=== PATIENT | female | born 1980 | race Caucasian/White ===

== ENCOUNTER 2017-06-14 20:56 | Emergency (ER) | payer OTHER ==
[~2017-06-14] VITALS: Ht 180.3 cm; Wt 113.4 kg
[~2017-06-14 20:56] MED LIST: AMITRIPTYLINE 225 MG PO; AMOXICOT500 MG PO; APAP/BUTALBITAL1 TA1 PO; BENTYL10 MG PO; BENTYL20 MG PO; BUSPIRONE HCL15 MG PO; CHANTIX1 M1 PO; CIPRO 500MG TA500 MG PO; DAILY MULTIPLE1 T11 PO; ESCITALOPRAM10 M1 PO; FLAGYL 500MG.500 MG PO; FLAGYL500 M1 PO; GABAPENTIN100 MG PO; GABAPENTIN800 MG PO; ISOMETH/DICHLOR1 CAP PO; LORTAB 5/500 501 TAB PO; MEDROL 4MG. DOSE4 MG PO; MELOXICAM15 MG PO; METOPROLOL100 MG OR; NEXIUM40 MG PO; NICODERM C21 MG/24 H TD; NORTRIPTYLINE PO; ONDANSETRON8 MG PO; PANTOPRAZOLE SO40 M1 PO; PHENERGAN 25MG.25 M1 PO; PROTONIX 40MG T40 MG PO; PROVENTIL0.09 MG/A1 IH; SIMVASTATIN20 MG PO; TESSALON PERLE100 M1 PO; TRAZODONE HCL150 MG PO; VICODIN 5/500 T1 TAB PO; ZOFRAN ODT4 MG PO; ZOLOFT100 MG; ZOMIG PO
--- NOTE | 2017-06-14 21:24 | Emergency Room Report ---
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 N Clinical Suspician of Infection? N Mental Status: 1 - Regular (Normal Baseline) Sepsis Risk:Low Sepsis Risk Have you (or family members/close friends) recently traveled outside the [place]? N If Yes, where/when: Have you had exposure to infectious disease within the past month? N TB? Other? Specify: Source patient, RN notes reviewed, family, old records Exam Limitations no limitations Comment acute rt foot injury with rad rt upper leg tonight with pain with wt bearing Cardiac Chest Pain Chest pain indicative of cardiac No Timing/Duration this evening ALLERGIES Coded Allergies: No Known Allergies (06/09/16) Home Medications Active Scripts Ondansetron (Zofran 4MG Odt) 4 MG PO Q6HP PRN NAUSEA AND VOMITING #6 ODT Prov: 08/04/16 ALBUTEROL (Proventil Hfa Inhaler) 1-2 PUFF IH Q4-6H PRN #1 CAN Ref 5 Prov: 08/30/15 Reported Medications Promethazine Hydrochloride (Phenergan 25MG Tab) 25 MG PO Q4-6H PRN #120 Amitriptyline Hcl (Amitriptyline) 75 MG PO QHS #90 TAB Gabapentin (Gabapentin 800MG) 800 MG PO QID #90 TAB Pantoprazole Sodium 40 MG PO BID #60 Escitalopram Oxalate 10 MG PO DAILY #30 Gabapentin (Gabapentin 100MG) 100 MG PO QID #120 MULTIVITAMIN (Daily Multiple Vitamin) 1 TAB PO DAILY Varenicline (Chantix) 1 MG PO BID #56 History Medical History General CAD? No Angina: Yes [place]: No Hypertension? Yes Hyperlipidemia? Yes CHF? No DVT? No PE? No COPD? Yes Asthma? No Anemia? No GERD? Yes Gastric ulcers? No GI Bleed? No Hernia? No Thyroid Problems? No Hypothyroidism? No CVA? No Seizures? No Diabetes? No Renal Insuffiency? No End Stage Renal Disease? No UTI? Yes Stones? No BPH? No GB Disease: No Nephritic Syndrome? No Asplenia? No Hepatitis? No Sickle Cell Disease? No Arthritis? No Migraines? Yes Cataracts? No Glaucoma? No MRSA? No HIV? No TB? No Anxiety? Yes Depression? Yes Cancer? No More? 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 Respiratory denies cough, denies shortness of breath, denies wheezing Cardiovascular denies chest pain, denies syncope Gastrointestinal denies abdominal pain, denies diarrhea, denies vomiting Genitourinary denies: dysuria, frequency, hesitancy, hematuria. Musculoskeletal see HPI, denies back pain, joint pain, joint swelling, denies neck pain Skin denies rash Psychiatric/Neurological denies seizure Physical Exam Vital Signs Vital Signs Date Time Temp Pulse Resp B/P Pulse O2 O2 Flow FiO2 Ox Delivery Rate 06/14 2100 98.0 78 18 149/99 98 - WBC >12,000 or <4,000 or 10% bands? 2 or more SIRS Criteria Met? B/P:149/99 MAP:115 Creatinine >2.0? UA output<0.5ml/kg/hr for 2 hrs? Platelet count >100,000? Lactate >2.0mmol/1? INR >1.2 or PTT > than 60 sec? Evidence of Organ Dysfunction? Provider documented clinical suspician of infection? N Sepsis Criteria Count: 0 Sepsis Risk: Low Sepsis Risk General Appearance no apparent distress Eye Exam - bilateral eye PERRL, bilateral eye EOMI Ear, Nose, Throat normal ENT inspection Neck supple Respiratory Status No: respiratory distress. 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 No Results/Orders Orders Procedure Date/time Status FOOT-RT-3 VIEWS 06/14 2105 Active XRAY/CT/US XRAY/CT/US XRAY foot XR interpretation by reviewed by me Xray Results no fracture seen Departure Departure Time of Disposition 2118 Disposition DC Home or Self Care(routine) Clinical Impression Primary Impression: Sprain of foot, right Qualifiers: Encounter type: initial encounter Qualified Code: S93.601A - Unspecified sprain of right foot, initial encounter Condition STABLE Referrals NAVEED JONES DPM Patient Instructions DI for Foot Sprain Additional Instructions ice and see pcp or podiatry for follow up Discharge Counseling Counseled pt/family regarding diagnosis, test results, medications/RX, follow up needs ED Critical Care Critical Care No at 2122
--- NOTE | 2017-06-14 21:24 | Emergency Room Report ---
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 N Clinical Suspician of Infection? N Mental Status: 1 - Regular (Normal Baseline) Sepsis Risk:Low Sepsis Risk Have you (or family members/close friends) recently traveled outside the [place]? N If Yes, where/when: Have you had exposure to infectious disease within the past month? N TB? Other? Specify: Source patient, RN notes reviewed, family, old records Exam Limitations no limitations Comment acute rt foot injury with rad rt upper leg tonight with pain with wt bearing Cardiac Chest Pain Chest pain indicative of cardiac No Timing/Duration this evening ALLERGIES Coded Allergies: No Known Allergies (06/09/16) Home Medications Active Scripts Ondansetron (Zofran 4MG Odt) 4 MG PO Q6HP PRN NAUSEA AND VOMITING #6 ODT Prov: 08/04/16 ALBUTEROL (Proventil Hfa Inhaler) 1-2 PUFF IH Q4-6H PRN #1 CAN Ref 5 Prov: 08/30/15 Reported Medications Promethazine Hydrochloride (Phenergan 25MG Tab) 25 MG PO Q4-6H PRN #120 Amitriptyline Hcl (Amitriptyline) 75 MG PO QHS #90 TAB Gabapentin (Gabapentin 800MG) 800 MG PO QID #90 TAB Pantoprazole Sodium 40 MG PO BID #60 Escitalopram Oxalate 10 MG PO DAILY #30 Gabapentin (Gabapentin 100MG) 100 MG PO QID #120 MULTIVITAMIN (Daily Multiple Vitamin) 1 TAB PO DAILY Varenicline (Chantix) 1 MG PO BID #56 History Medical History General CAD? No Angina: Yes [place]: No Hypertension? Yes Hyperlipidemia? Yes CHF? No DVT? No PE? No COPD? Yes Asthma? No Anemia? No GERD? Yes Gastric ulcers? No GI Bleed? No Hernia? No Thyroid Problems? No Hypothyroidism? No CVA? No Seizures? No Diabetes? No Renal Insuffiency? No End Stage Renal Disease? No UTI? Yes Stones? No BPH? No GB Disease: No Nephritic Syndrome? No Asplenia? No Hepatitis? No Sickle Cell Disease? No Arthritis? No Migraines? Yes Cataracts? No Glaucoma? No MRSA? No HIV? No TB? No Anxiety? Yes Depression? Yes Cancer? No More? 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 Respiratory denies cough, denies shortness of breath, denies wheezing Cardiovascular denies chest pain, denies syncope Gastrointestinal denies abdominal pain, denies diarrhea, denies vomiting Genitourinary denies: dysuria, frequency, hesitancy, hematuria. Musculoskeletal see HPI, denies back pain, joint pain, joint swelling, denies neck pain Skin denies rash Psychiatric/Neurological denies seizure Physical Exam Vital Signs Vital Signs Date Time Temp Pulse Resp B/P Pulse O2 O2 Flow FiO2 Ox Delivery Rate 06/14 2100 98.0 78 18 149/99 98 - WBC >12,000 or <4,000 or 10% bands? 2 or more SIRS Criteria Met? B/P:149/99 MAP:115 Creatinine >2.0? UA output<0.5ml/kg/hr for 2 hrs? Platelet count >100,000? Lactate >2.0mmol/1? INR >1.2 or PTT > than 60 sec? Evidence of Organ Dysfunction? Provider documented clinical suspician of infection? N Sepsis Criteria Count: 0 Sepsis Risk: Low Sepsis Risk General Appearance no apparent distress Eye Exam - bilateral eye PERRL, bilateral eye EOMI Ear, Nose, Throat normal ENT inspection Neck supple Respiratory Status No: respiratory distress. 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 No Results/Orders Orders Procedure Date/time Status FOOT-RT-3 VIEWS 06/14 2105 Active XRAY/CT/US XRAY/CT/US XRAY foot XR interpretation by reviewed by me Xray Results no fracture seen Departure Departure Time of Disposition 2118 Disposition DC Home or Self Care(routine) Clinical Impression Primary Impression: Sprain of foot, right Qualifiers: Encounter type: initial encounter Qualified Code: S93.601A - Unspecified sprain of right foot, initial encounter Condition STABLE Referrals NAVEED JONES DPM Patient Instructions DI for Foot Sprain Additional Instructions ice and see pcp or podiatry for follow up Discharge Counseling Counseled pt/family regarding diagnosis, test results, medications/RX, follow up needs ED Critical Care Critical Care No at 2121
[2017-06-14 21:54] VITALS: BP 149/99
--- NOTE | 2017-06-15 08:27 | RADIOLOGY REPORT PS360 ---
FOOT-RT-3 VIEWS HISTORY: Right foot pain foot pain ORDERING PHYSICIAN: Jules Reilly MD PATIENT AGE: 37 years COMPARISON: None FINDINGS: No fracture or dislocation. No lytic or blastic change. There is normal mineralization.. The joint spaces are well-preserved. No significant degenerative/arthritic changes. No erosive changes evident. There is a small calcaneal spur nonspecific IMPRESSION: No acute finding, small calcaneal spur
--- OUTSIDE RECORDS SUMMARY | 2017-06-19 23:12 | External Medical Summary Rpt | CCD ---
Author Author [employer] Organization [employer] Address Unknown Phone Unavailable Purpose Continuity of Care Document - through 2016
--- OUTSIDE RECORDS SUMMARY | 2017-06-19 23:12 | External Medical Summary Rpt | CCD ---
Author Author , CAESAR MAYNARD Address Unknown Phone [email or web address] Care Team Providers Care Cable Puller Name Role Phone Jules Reilly MD, Unavailable Unavailable Jules Reilly MD Purpose Continuity of Care Document - 01-17-2013 through 2016 Problems Code Diagnosis DOS Provider Status 305.1 305.1 05-25-2013 [place] TOBACCO USE [facility] 346.90 346.90 05-25-2013 [place] MIGRAINE [facility] Hospital W/O INTRACT MGRN W/O STATUS MIGRAINOSUS 401.9 401.9 05-25-2013 [place] HYPERTENSIO [facility] NOS Hospital 784.0 784.0 01-17-2013 [facility] Allergies, Adverse Reactions, Alerts Type Allergy to substance Adverse Reaction to Substance Substance Reaction Severity NO KNOWN ALLERGIES Unknown Unknown Medications Na ND Rx Da Fi Fi Am Da Di Ph RX Ph St me C No te ll ll ou ys ag ar # ys at rm s nt no ma ic us Or Da si cy ia de te s n re d SO 00 09 0 No DI 40 -1 UM 97 8- Lo 98 20 ng CH 30 13 er LO 9 RI Ac DE ti ve 0. 9% SO ADRIANO TI ON Sa 63 09 0 No li 80 -1 ne 70 8- Lo 10 20 ng Fl 07 13 er us 5 h Ac 10 ti ML ve Sy ri ng e DI 00 09 0 No PH 40 -1 EN 92 8- Lo HY [address] 03 13 er AM 1 IN Ac E ti 50 ve MG /M L SY RN G KE 00 09 0 No TO 40 -1 RO 93 8- Lo LA 79 20 ng C 50 13 er 30 1 Ac MG ti /M ve L AL ON 00 09 0 No DA 64 -1 NS 16 8- Lo ET 08 20 ng RO 02 13 er N 5 HC Ac L ti 4 ve MG /2 ML AL Sa 63 09 0 No li 80 -1 ne 70 8- Lo 10 20 ng Fl 07 13 er us 5 h Ac 10 ti ML ve Sy ri ng e [place] 00 09 0 No OM 64 -1 ET 11 8- Lo BAKER 49 20 ng ZI 53 13 er NE 5 Ac 25 ti ve MG /M L AM PU L BU 55 09 0 No TO 39 -1 RP 00 8- Lo BAKER 18 20 ng NO 30 13 er L 1 1 Ac MG ti /M ve L AL HY [address] 40 -1 OM 91 8- Lo OR 31 20 ng PH 23 13 er ON 0 E Ac 2 ti MG ve /M L CA RP UJ CT KE 00 05 0 No TO 40 -1 RO 93 3- Lo LA 79 20 ng C 60 13 er 60 1 Ac MG ti /2 ve ML AL [place] 00 05 0 No OM 64 -1 ET 11 3- Lo BAKER 49 20 ng ZI 63 13 er NE 5 Ac 50 ti ve MG /M L AM PU L Vital Signs 05-25-2013 22:29 Name Value Interpretat Reference Comment ion Range BP 81 mm[Hg] Diastolic BP Systolic 135 mm[Hg] Heart 87 /min Rate/Pulse O2% 100 % Respiratory 20 /min Rate 05-25-2013 21:14 Name Value Interpretat Reference Comment ion Range BP 83 mm[Hg] Diastolic BP Systolic 144 mm[Hg] Heart 83 /min Rate/Pulse O2% 98 % Respiratory 20 /min Rate 01-17-2013 19:47 Name Value Interpretat Reference Comment ion Range Body 98.3 [degF] Temperature BP 101 mm[Hg] Diastolic BP Systolic 167 mm[Hg] Heart 91 /min Rate/Pulse O2% 99 % Respiratory 17 /min Rate 01-17-2013 19:45 Name Value Interpretat Reference Comment ion Range Body 98.3 [degF] Temperature BP 101 mm[Hg] Diastolic BP Systolic 167 mm[Hg] Heart 91 /min Rate/Pulse O2% 99 % Respiratory 17 /min Rate Encounters Encounter Start End Date Code Location Performer Type Date Emergency FARIDA Reilly MD (ER) 3 20:52 3 22:31 [facility] Emergency FARIDA Reilly MD (ER) 3 19:03 3 19:47 [facility]
--- OUTSIDE RECORDS SUMMARY | 2017-06-19 23:12 | External Medical Summary Rpt | CCD ---
Author Author , CAESAR MAYNARD Address Unknown Phone [email or web address] Care Team Providers Care Cost Control Specialist Name Role Phone Jules Reilly MD, Unavailable Unavailable Jules Reilly MD Purpose Continuity of Care Document - 01-17-2013 through 2016 Problems Code Diagnosis DOS Provider Status 305.1 305.1 05-25-2013 [place] TOBACCO USE [facility] 346.90 346.90 05-25-2013 [place] MIGRAINE [facility] Hospital W/O INTRACT MGRN W/O STATUS MIGRAINOSUS 401.9 401.9 05-25-2013 [place] HYPERTENSIO [facility] NOS Hospital 784.0 784.0 01-17-2013 [facility] Allergies, Adverse Reactions, Alerts Type Allergy to [...] ti ML ve Sy ri ng e LA 00 09 0 No OM 64 -1 [...] Ac MG ti /2 ve ML AL LA 00 05 0 No OM 64 -1 [...] Reilly MD (ER) 3 20:52 3 22:31 [facility] Emergency FARIDA Reilly MD (ER) 3 19:03 3 19:47 [facility]
--- OUTSIDE RECORDS SUMMARY | 2017-06-19 23:13 | External Medical Summary Rpt ---
Author Author SHERCALLUM Dickerson, [employer] Organization [employer] Address Unknown Phone Unavailable Payers Section Payer Plan Name Group ID Member ID Coverage Coverage Start End Date Date ANTHEM [id number]^ANT [id number] No No HEM PPO 396 informati informati on in on in source source data data Results Free T4 Observa Value Referen Units Interpr Notes Date tion ce etation Range Thyroxi 1.04 0.93 - ng/dL No No Nov 23 ne (T4) 1.70 informa informa 2014 free tion in tion in 1:36 PM [Mass/v source source olume] data data in Serum or Plasma TSH Observa Value Referen Units Interpr Notes Date tion ce etation Range Thyrotr 1.370 0.270 - mcIU/mL No No Nov 23 opin 4.200 informa informa 2014 [Units/ tion in tion in 1:35 PM volume] source source in data data Serum or Plasma Auto Diff Observa Value Referen Units Interpr Notes Date tion ce etation Range Neutrop 60.4 No % No No Nov 23 hils informa informa informa 2014 [#/volu tion in tion in tion in 12:51 me] in source source source PM Blood data data data by Automat ed count Lymphoc 28.4 No % No No Nov 23 ytes informa informa informa 2014 [#/volu tion in tion in tion in 12:51 me] in source source source PM Blood data data data by Automat ed count Monocyt 7.6 No % No No Nov 23 es informa informa informa 2014 [#/volu tion in tion in tion in 12:51 me] in source source source PM Blood data data data by Automat ed count Eos 2.8 No % No No Nov 19 Percent informa informa informa 2014 tion in tion in tion in 12:51 source source source PM data data data Baso 0.8 No % No No Nov 19 Percent informa informa informa 2014 tion in tion in tion in 12:51 source source source PM data data data Neut# 5.1 1.8 - x10(3)/ No No Mar 19 7.7 mcL informa informa 2014 tion in tion in 12:51 source source PM data data Lymph# 2.4 0.6 - x10(3)/ No No Mar 19 4.8 mcL informa informa 2014 tion in tion in 12:51 source source PM data data Sabine# 0.6 0.0 - x10(3)/ No No Mar 19 1.3 mcL informa informa 2014 tion in tion in 12:51 source source PM data data Eos# 0.2 0.0 - x10(3)/ No No Mar 19 0.5 mcL informa informa 2014 tion in tion in 12:51 source source PM data data Baso# 0.1 0.0 - x10(3)/ No No Mar 19 0.2 mcL informa informa 2014 tion in tion in 12:51 source source PM data data CBC Observa Value Referen Units Interpr Notes Date tion ce etation Range LEUKOCY 8.4 4.0 - x10(3)/ No No Mar 19 HERMILA 11.0 mcL informa informa 2014 tion in tion in 12:51 source source PM data data Erythro 3.96 3.80 - x10(6)/ No No Mar 19 cytes 5.10 mcL informa informa 2014 [#/volu tion in tion in 12:51 me] in source source PM Blood data data by Automat ed count Hemoglo 12.7 12.0 - gm/dL No No Nov 19 bin 15.6 informa informa 2014 [Mass/v tion in tion in 12:51 olume] source source PM in data data Blood Hematoc 36.9 35.7 - % No No Nov 19 rit 45.9 informa informa 2014 [Volume tion in tion in 12:51 source source PM Fractio data data n] of Blood by Automat ed count Erythro 93.2 82.5 - fL No No Nov 23 cyte 99.8 informa informa 2014 mean tion in tion in 12:51 corpusc source source PM ular data data volume [Entiti c volume] by Automat ed count Erythro 32.1 27.0 - pg No No Nov 23 cyte 34.3 informa informa 2014 mean tion in tion in 12:51 corpusc source source PM ular data data hemoglo bin [Entiti c mass] by Automat ed count Erythro 34.5 32.1 - gm/dL No No Nov 23 cyte 35.3 informa informa 2015 mean tion in tion in 12:51 corpusc source source PM ular data data hemoglo bin concent ration [Mass/v olume] by Automat ed count Erythro 12.4 11.5 - % No No Nov 23 cyte 15.0 informa informa 2015 distrib tion in tion in 12:51 ution source source PM width data data [Ratio] by Automat ed count Platele 264 144 - x10(3)/ No No Nov 23 ts 423 mcL informa informa 2015 [#/volu tion in tion in 12:51 me] in source source PM Blood data data by Automat ed count MPV 7.9 6.8 - fL No No Nov 23 10.8 informa informa 2014 tion in tion in 12:51 source source PM data data
--- OUTSIDE RECORDS SUMMARY | 2017-06-19 23:13 | External Medical Summary Rpt | CCD ---
Demographics Preferred Language Uzbek Marital Status Unknown Amish Affiliation Unknown Race Unknown Ethnic Group Unknown Author Author , CAESAR MAYNARD Address Unknown Phone Immunization No patient found.
--- OUTSIDE RECORDS SUMMARY | 2017-06-19 23:13 | External Medical Summary Rpt | CCD ---
Demographics Preferred Language Thai Marital Status Unknown Evangelical Affiliation Unknown Race Unknown Ethnic Group Unknown Author Author , CAESAR MAYNARD Address Unknown Phone Immunization No patient found.
--- OUTSIDE RECORDS SUMMARY | 2017-06-19 23:13 | External Medical Summary Rpt ---
Author Author SHERCALLUM Dickerson, [employer] Organization [employer] Address Unknown Phone Unavailable Payers Section Payer Plan Name Group ID Member ID Coverage Coverage Start End Date Date ANTHEM [id number]^ANT [id number] No No HEM PPO 396 informati informati [...] in 12:51 source source PM data data [place]# 0.6 0.0 - x10(3)/ No No Mar [...]
== END 2017-06-14 21:55 | disposition home or self-care (01) ==
LOC: ER 20:56
PROC: 2W3QX1Z Immobilization of Right Lower Leg using Splint (ICD-10-PCS; principal; 2017-06-14)
DX: S93.601A Unspecified sprain of right foot, initial encounter (principal); I10 Essential (primary) hypertension; J44.9 Chronic obstructive pulmonary disease, unspecified; K21.9 Gastro-esophageal reflux disease without esophagitis; F41.8 Other specified anxiety disorders; Z87.891 Personal history of nicotine dependence; W18.2XXA Fall in (into) shower or empty bathtub, initial encounter; Y92.012 Bathroom of single-family (private) house as the place of occurrence of the external cause